=== PATIENT | male | born 1955 | race African-American/Black ===

== ENCOUNTER 2018-06-05 16:59 | Emergency (ER) | payer OTHER ==
[2018-06-05 17:10] VITALS: BP 157/79; PULSE 96; TEMP 98.6; BMI 31.9
--- NOTE | 2018-06-05 17:43 | PDOC ---
History of Present Illness - General Chief Complaint: Rash Stated Complaint: SORE THROAT Time Seen by Provider: 06/05/18 17:11 History Source: Patient Exam Limitations: No Limitations - History of Present Illness Initial Comments: 06/05/18 17:52 Patient is HIV positive, with diabetes who has not taken anymore antiretroviral medications and is noncompliant with insulin medications over this past year due to personal issues and family problems. Has an appointment see the [facility] tomorrow morning but came for evaluation of tenderness to his tongue that he noted approximately 4 months ago and some lesions that bleed intermittently. Patient states rubs relations with his teeth and that may cause some of the trauma/bleeding Severity: moderate Associated Symptoms: reports: denies symptoms, loss of appetite, malaise. denies: cough, fever/chills Past History - Travel Traveled outside of the country in the last 30 days: No Close contact w/someone who was outside of country & ill: No - Past Medical History Allergies/Adverse Reactions: Allergies Allergy/AdvReac Type Severity Reaction Status Date / Time Pork/Porcine Containing AdvReac Verified 06/05/18 17:33 Products brazil nuts Allergy Swelling Uncoded 09/12/15 16:59 pumpkin seeds AdvReac Nausea Uncoded 04/21/11 13:43 Home Medications: Ambulatory Orders Aspirin [Aspirin EC] 81 mg PO DAILY #30 tablet. 08/13/15 Insulin Glargine,Hum.rec.anlog [Lantus Solostar PEN -] 30 units SQ HS #1 pen 06/24 Clotrimazole [Mycelex Enrique's -] 10 mg PO TID #21 enrique 06/05/18 Oxycodone HCl/Acetaminophen [Percocet 10-325 mg Tablet] 1 each PO ASDIR Anemia: No Asthma: No Cancer: No Cardiac Disorders: No CVA: No COPD: No CHF: No Dementia: No Diabetes: Yes (IDDM) GI Disorders: No Disorders: No HTN: No Hypercholesterolemia: No Liver Disease: No Seizures: No Thyroid Disease: No - Surgical History Cholecystectomy: No - Suicide/Smoking/Psychosocial Hx Smoking History: Current every day smoker Have you smoked in the past 12 months: Yes Number of Cigarettes Smoked Daily: 10 Cigars Per Day: 0 Information on smoking cessation initiated: No 'Breaking Loose' booklet given: 12/30/16 Hx Alcohol Use: No Drug/Substance Use Hx: No Substance Use Type: None Hx Substance Use Treatment: No Review of Systems - Review of Systems Able to Perform ROS?: Yes Is the patient limited Sinhala proficient: Yes Constitutional: Yes: Symptoms Reported, See HPI, Loss of Appetite, Malaise, Weakness. No: Chills, Fever HEENTM: Yes: Symptoms Reported, See HPI, Mouth Pain, Dental Problems. No: Mouth Swelling Respiratory: Yes: See HPI Neurological: Yes: Symptoms reported All Other Systems: Reviewed and Negative *Physical Exam - Vital Signs Last Vital Signs Temp Pulse Resp BP Pulse Ox 98.6 F 96 H 16 157/79 98 06/05/18 17:08 06/05/18 17:08 06/05/18 17:08 06/05/18 17:08 06/05/18 17:08 - Physical Exam General Appearance: Yes: Nourished, Appropriately Dressed HEENT: positive: CARLIE, TMs Normal, Pharyngeal Erythema, Nasal Congestion, Rhinorrhea. negative: Pharynx Normal (erythema without exudate or swelling. Tongue is coated with what appears to be hairy leukoplakia with multiple elevated papules in the posterior aspect of tongue, no bleeding noted.) Neck: positive: Supple, Lymphadenopathy (R), Lymphadenopathy (L). negative: Tender Respiratory/Chest: positive: Lungs Clear, Normal Breath Sounds Gastrointestinal/Abdominal: positive: Normal Bowel Sounds, Soft. negative: Tender Musculoskeletal: positive: Normal Inspection Extremity: positive: Normal Capillary Refill, Normal Inspection Integumentary: positive: Normal Color, Pale Neurologic: positive: foot setter II-XII NML intact, Fully Oriented, Alert, Normal Mood/ Affect, Normal Response, Motor Strength 5/5 Moderate Sedation - Procedure Monitoring Vital Signs: Procedure Monitoring Vital Signs Temperature 98.6 F 06/05/18 17:08 Pulse Rate 96 H 06/05/18 17:08 Respiratory Rate 16 06/05/18 17:08 Blood Pressure 157/79 06/05/18 17:08 O2 Sat by Pulse Oximetry (%) 98 06/05/18 17:08 Medical Decision Making - Medical Decision Making 06/05/18 17:55 HIV disease and diabetes, patient noncompliant with medications with chronic changes including hairy leukoplakia.. We'll give Mycelex Troches is today as patient has appointment for thorough evaluation and reinitiation of treatment tomorrow at the [facility]. 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 Tylenol or Motrin for fever and pain Complete all medication as prescribed Seek dental appointment as soon as possible for evaluation of dental injury/pain Hervemichael castorena to suck on 3 times a day Followup with private physician in one to 2 days as needed Return to emergency department for worsened symptoms, fevers, swelling to face or worsened pain - Post Discharge Activity
== END 2018-06-05 18:01 | disposition home or self-care (01) ==
LOC: JERFT 16:59
DX: K13.3 Hairy leukoplakia (principal); E11.9 Type 2 diabetes mellitus without complications; Z79.4 Long term (current) use of insulin; Z21 Asymptomatic human immunodeficiency virus [HIV] infection status; Z91.14 Patient's other noncompliance with medication regimen
CPT/HCPCS: 99281-25

== ENCOUNTER 2019-06-15 11:40 | Emergency (ER) | payer OTHER ==
[2019-06-15 11:58] VITALS: BP 142/52; PULSE 85; TEMP 98.1; BMI 25.8
[2019-06-15] MEDS ORDERED: LIDOCAINE 5% TOPICAL PATCH TP ONE (12:22)
[2019-06-15] MEDS ORDERED: ACETAMINOPHEN 325 MG TABLET (FP) PO ONE (12:22)
[2019-06-15] MEDS ORDERED: ACETAMINOPHEN 325 MG TABLET (FP) ONE (12:55)
[2019-06-15] MEDS ORDERED: LIDOCAINE 5% TOPICAL PATCH ONE (12:55)
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
== END 2019-06-15 14:24 | disposition home or self-care (01) ==
LOC: JERFT 11:40
DX: R07.81 Pleurodynia (principal); W18.39XA Other fall on same level, initial encounter; Y93.89 Activity, other specified; Y92.89 Other specified places as the place of occurrence of the external cause; Z91.018 Allergy to other foods; Z21 Asymptomatic human immunodeficiency virus [HIV] infection status; I10 Essential (primary) hypertension; E11.9 Type 2 diabetes mellitus without complications; Z86.73 Personal history of transient ischemic attack (TIA), and cerebral infarction without residual deficits
CPT/HCPCS: 71046-TC-FY; 71101-TC-LT-FY; 99283-25